=== PATIENT | female | born 1950 | race Caucasian/White ===

== ENCOUNTER 2017-07-22 03:32 | Observation (INO) | payer OTHER ==
[2017-07-22] MEDS ORDERED: IPRATROPIUM/ALBUTEROL 3 ML DEYVIAL IH ONE ×2 (03:38→06:38)
--- NOTE | 2017-07-22 03:41 | EDPHY ---
H & P Time Seen by Provider: 07/22/17 03:37 HPI/ROS: CC: Shortness of breath HPI: This 67-year-old female with past medical history of coronary artery disease status post stents x 3, hypertension, rheumatoid arthritis, and long- term tobacco use, presents to emergency [facility] complaining of increasing shortness of breath since 8 p.m. last evening. She states she has had a cough for couple of days and when she is able to cough something up it is thick and yellow. She denies fever, chills, nausea, vomiting, diaphoresis, chest pain, leg pain or swelling. No long trips or travel recently. 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 She did get a flu vaccination this year. She continues to smoke currently 3-4 cigarettes a day but has smoked more than a pack a day in the past. She started smoking at age 10. She denies history of asthma, emphysema, or COPD. She does not use home oxygen. She has not seen her primary care provider for greater than 3 years. REVIEW OF SYSTEMS: Constitutional: No fever, no chills. Eyes: No discharge. ENT: No sore throat. Left ear pain. Respiratory: See HPI. Cardiac: No chest pain, no palpitations. Gastrointestinal: No abdominal pain, no vomiting. Genitourinary: No hematuria. Musculoskeletal: No back pain. Skin: No rashes. Neurological: Mild headache. Source: Patient - Medical/Surgical History PMH: PMH: Coronary artery disease/OK with stents x 3, hypertension, rheumatoid arthritis, long-term tobacco use PSH: Coronary artery stenting x 3, cholecystectomy, knee arthroscopy, carpal tunnel surgery, GERD, shingles FH: Mother from a heart attack at age 58; father from prostate cancer at approximately age 89 Allergies to penicillin, sulfa, Humira, Enbrel, Arava Meds: Reviewed. Includes Plavix, NTG, Lipitor, losartan, Vicodin, Nexium, Voltaren, hydralazine, gabapentin, methotrexate. PCP: Sharri Mckinley Hx Asthma: No Hx Chronic Respiratory Disease: No Hx Diabetes: No Hx Cardiac Disease: Yes Hx Renal Disease: No Hx Splenectomy or Spleen Trauma: No Other PMH: Stents x 2 heart . Last in 2009. Cholecystectomy. caarpal tunnel surgery - Family History Significant Family History: Heart disease, Cancer - Social History Smoking Status: Current every day smoker Alcohol Use: Other (Patient denies current alcohol use. A review of previous records states 1-2 beers/day) Drug Use: None - Physical Exam Exam: General Appearance: Alert, mod distress. Conversational dyspnea. Sits on edge of bed instead of reclining. Appears older than stated age. Eyes: Pupils equal and round no pallor or injection. ENT, Mouth: Mucous membranes are moist. Respiratory: Tight, diminished air movement with bilateral coarse rhonchi and expiratory wheeze. Cardiovascular: Regular rate and rhythm. Borderline tachycardia. Gastrointestinal: Abdomen is soft and nontender, no masses, bowel sounds normal. Neurological: Awake and alert, sensory and motor exams grossly normal. Skin: Warm and dry, no rashes. Musculoskeletal: Neck is supple nontender. No JVD. Extremities are symmetrical, full range of motion. No calf tenderness or swelling. Psychiatric: Patient is oriented X 3, there is no agitation. DIFFERENTIAL DIAGNOSIS: After history and physical exam differential diagnosis was considered for but not limited to: Acute exacerbation of COPD, community- acquired pneumonia, influenza, congestive heart failure, cardiac ischemia, pulmonary embolism, Constitutional: Initial Vital Signs O2 Sat (%) 93 07/22/17 03:38 O2 Delivery Mode Nasal Cannula O2 (L/minute) 2 Allergies/Adverse Reactions: adalimumab [From Humira] Allergy (Verified 07/22/17 03:55) etanercept [From Enbrel] Allergy (Verified 07/22/17 03:55) leflunomide [From Arava] Allergy (Verified 07/22/17 03:55) Penicillins Allergy (Verified 07/22/17 03:55) Sulfa (Sulfonamide Antibiotics) Allergy (Verified 07/22/17 03:55) Home Medications: Medication Instructions Recorded FISH OIL 1,000 MG SOFTGEL 01/02/10 FOLIC ACID 01/02/10 HYDROCODONE-APAP 5-325 TABLET 01/02/10 Lipitor 80 mg 01/02/10 Methotrexate Lpf 01/02/10 NEXIUM 01/02/10 NITROGLYCERIN PRN 01/02/10 Plavix 01/02/10 Voltaren 01/02/10 Vitamin D3 (OTC) 09/21/15 Gabapentin 07/22/17 hydrALAZINE 07/22/17 Medical Decision Making - Diagnostics EKG Interpretation: NSR, HR 96, borderline t abn ant-lat leads; when c/w ECG 01/02/10 heart rate has increased by 34 beats per minute. Imaging Results: CXR: No infiltrate or effusion. Prominent pericardial fat pad. Mild peribronchial thickening. CTPA: No PE, no pneumonia, prominent pericardial fat pad. Mild peribronchial thickening. A few scattered nodules on right. Follow up in 6-12 months in this long time tobacco user. ED Course/Re-evaluation: The patient was seen and examined. Vital signs were notable for I a borderline tachycardia as as sats in the upper 80s on room air. She was tachypneic or with increased work of breathing. An EKG showed a normal sinus rhythm with a heart rate of 96 and no acute ischemic changes. CBC showed a normal white blood cell count with elevated MCV and MCH. Chemistry was remarkable for slightly elevated creatinine at 1.1. Troponin was normal. Lactic acid was normal. BNP was slightly elevated at 168 and a D-dimer was also slightly elevated at 0.55. Influenza negative. Patient was given a L of IV fluids, a DuoNeb, and Solu-Medrol 125 mg IV push. Chest x-ray showed no definite infiltrate. She has a very prominent pericardial fat pad. Due to the elevated D-dimer, the tachycardia and hypoxemia a CT pulmonary angiogram was performed. The radiologist verbal report confirmed no pulmonary embolism, old rib fractures , no pneumonia, minimal peribronchial thickening. She also had some scattered nodules on the right which will need follow-up in 6-12 months. The patient is feeling much better and would like to go home. Her lung sounds have improved after the DuoNeb. She was given a dose of oral doxycycline 100 mg, 2 puffs on an albuterol inhaler, and her oxygen was removed to trial her on room air. She immediately dropped down to 83%. She agrees to admission. Discussed with and accepted by Dr. Sharri Silva. - Data Points Laboratory Results: Laboratory Results 07/22/17 04:00 07/22/17 04:00 07/22/17 07/22/17 07/22/17 04:06 04:05 04:00 WBC RBC Hgb POC Hgb 13.9 gm/dL gm/dL (12.6-16.3) Hct POC Hct 41 % % (38-47) MCV MCH MCHC RDW Plt Count MPV Neut % (Auto) Lymph % (Auto) Nicholas % (Auto) Eos % (Auto) Baso % (Auto) Nucleat RBC Rel Count Absolute Neuts (auto) Absolute Lymphs (auto) Absolute Monos (auto) Absolute Eos (auto) Absolute Basos (auto) Absolute Nucleated RBC Immature Gran % Immature Gran # D-Dimer VBG Lactic Acid POC Sodium 139 mEq/L mEq/L (135-145) Sodium POC Potassium 4.3 mEq/L mEq/L (3.3-5.0) Potassium POC Chloride 101 mEq/L mEq/L (97-110) Chloride Carbon Dioxide Anion Gap POC BUN 23 mg/dL mg/dL (7-23) BUN Creatinine POC Creatinine 1.2 mg/dL H mg/dL (0.6-1.0) Estimated GFR Glucose POC Glucose 107 mg/dL H mg/dL (70-100) Calcium Total Bilirubin Conjugated Bilirubin Unconjugated Bilirubin AST ALT Alkaline Phosphatase Troponin I < 0.012 ng/mL ng/mL (0.000-0.034) NT-Pro-B Natriuret Pep 168 pg/mL H pg/mL (0-125) Total Protein Albumin Influenza A,B Rapid NEGATIVE FOR FLU (NEGATIVE) 07/22/17 07/22/17 07/22/17 04:00 04:00 04:00 WBC 4.80 10^3/uL 10^3/uL (3.80-9.50) RBC 3.90 10^6/uL L 10^6/uL (4.18-5.33) Hgb 13.9 g/dL g/dL (12.6-16.3) POC Hgb Hct 40.4 % % (38.0-47.0) POC Hct MCV 103.6 fL H fL (81.5-99.8) MCH 35.6 pg H pg (27.9-34.1) MCHC 34.4 g/dL g/dL (32.4-36.7) RDW 13.6 % % (11.5-15.2) Plt Count 203 10^3/uL 10^3/uL (150-400) MPV 9.1 fL fL (8.7-11.7) Neut % (Auto) 73.5 % % (39.3-74.2) Lymph % (Auto) 11.7 % L % (15.0-45.0) Nicholas % (Auto) 11.9 % % (4.5-13.0) Eos % (Auto) 2.3 % % (0.6-7.6) Baso % (Auto) 0.4 % % (0.3-1.7) Nucleat RBC Rel Count 0.0 % % (0.0-0.2) Absolute Neuts (auto) 3.53 10^3/uL 10^3/uL (1.70-6.50) Absolute Lymphs (auto) 0.56 10^3/uL L 10^3/uL (1.00-3.00) Absolute Monos (auto) 0.57 10^3/uL 10^3/uL (0.30-0.80) Absolute Eos (auto) 0.11 10^3/uL 10^3/uL (0.03-0.40) Absolute Basos (auto) 0.02 10^3/uL 10^3/uL (0.02-0.10) Absolute Nucleated RBC 0.00 10^3/uL 10^3/uL (0-0.01) Immature Gran % 0.2 % % (0.0-1.1) Immature Gran # 0.01 10^3/uL 10^3/uL (0.00-0.10) D-Dimer 0.55 ug/mLFEU H ug/mLFEU (0.00-0.50) VBG Lactic Acid POC Sodium Sodium 140 mEq/L mEq/L (135-145) POC Potassium Potassium 4.6 mEq/L mEq/L (3.5-5.2) POC Chloride Chloride 104 mEq/L mEq/L (97-110) Carbon Dioxide 25 mEq/l mEq/l (22-31) Anion Gap 11 mEq/L mEq/L (8-16) POC BUN BUN 23 mg/dL mg/dL (7-23) Creatinine 1.1 mg/dL H mg/dL (0.6-1.0) POC Creatinine Estimated GFR 50 Glucose 103 mg/dL H mg/dL (70-100) POC Glucose Calcium 9.1 mg/dL mg/dL (8.5-10.4) Total Bilirubin 0.6 mg/dL mg/dL (0.1-1.4) Conjugated Bilirubin 0.4 mg/dL mg/dL (0.0-0.5) Unconjugated Bilirubin 0.2 mg/dL mg/dL (0.0-1.1) AST 30 IU/L IU/L (14-46) ALT 40 IU/L IU/L (9-52) Alkaline Phosphatase 70 IU/L IU/L (38-126) Troponin I NT-Pro-B Natriuret Pep Total Protein 7.2 g/dL g/dL (6.3-8.2) Albumin 4.0 g/dL g/dL (3.5-5.0) Influenza A,B Rapid 07/22/17 04:00 WBC RBC Hgb POC Hgb Hct POC Hct MCV MCH MCHC RDW Plt Count MPV Neut % (Auto) Lymph % (Auto) Nicholas % (Auto) Eos % (Auto) Baso % (Auto) Nucleat RBC Rel Count Absolute Neuts (auto) Absolute Lymphs (auto) Absolute Monos (auto) Absolute Eos (auto) Absolute Basos (auto) Absolute Nucleated RBC Immature Gran % Immature Gran # D-Dimer VBG Lactic Acid 1.0 mmol/L mmol/L (0.7-2.1) POC Sodium Sodium POC Potassium Potassium POC Chloride Chloride Carbon Dioxide Anion Gap POC BUN BUN Creatinine POC Creatinine Estimated GFR Glucose POC Glucose Calcium Total Bilirubin Conjugated Bilirubin Unconjugated Bilirubin AST ALT Alkaline Phosphatase Troponin I NT-Pro-B Natriuret Pep Total Protein Albumin Influenza A,B Rapid Medications Given: Discontinued Medications Albuterol/Ipratropium (Duoneb) 3 ml IH EDNOW ONE Stop: 07/22/17 03:39 Last Admin: 07/22/17 03:54 Dose: 3 ml Sodium Chloride (Ns) 1,000 mls @ 0 mls/hr IV ONCE ONE; Wide Open PRN Reason: Protocol Stop: 07/22/17 04:21 Last Admin: 07/22/17 04:25 Dose: 1,000 mls Methylprednisolone Sodium Succinate (Solu-Medrol) 125 mg IVP EDNOW ONE Stop: 07/22/17 04:21 Last Admin: 07/22/17 04:24 Dose: 125 mg Point of Care Test Results: 07/22/17 04:06 POC Sodium 139 POC Potassium 4.3 POC Chloride 101 POC BUN 23 POC Creatinine 1.2 H POC Glucose 107 H Departure - Departure Disposition: [facility] Inpatient Acute Clinical Impression: Hypoxemia Acute bronchitis Qualifiers: Bronchitis organism: unspecified organism Qualified Code(s): J20.9 - Acute bronchitis, unspecified Condition: Fair Instructions: Acute Bronchitis (ED), Doxycycline (By mouth), Albuterol (By breathing), Pulmonary Function Tests (DC) Additional Instructions: Please stop smoking. Take medications as directed. Call today to arrange follow up with your primary care provider, Dr. Benjamin Roger. You will need further evaluation to determine if you have COPD and if you could benefit from inhalers etc. You may need Pulmonary Function Testing (PFTs). You will also need a repeat CT scan of your lungs in 6-12 months. Return to the ER if symptoms worsen.
--- NOTE | 2017-07-22 03:52 | CPEKG ---
Heart Rate: 96 RR Interval: 625 P-R Interval: 128 QRSD Interval: 66 QT Interval: 344 QTC Interval: 435 P Sulligent: 82 QRS Sulligent: 73 T Wave Sulligent: 74 EKG Severity - BORDERLINE ECG - EKG Impression: SINUS RHYTHM EKG Impression: BORDERLINE T ABNORMALITIES, ANT-LAT LEADS Electronically Signed By: Colette Luu 22-Jul-2017 05:30:59
[2017-07-22 04:12] LABS: PLATELET COUNT 203 10^3/uL (150-400)
[2017-07-22] MEDS ORDERED: NS 1,000 ML IV ONE (04:20)
[2017-07-22] MEDS ORDERED: methylPREDNISolone SOD SUCC 125 MG/2 ML VIAL IVP ONE (04:20)
[2017-07-22] MEDS ORDERED: IOPAMIDOL (ISOVUE 370) 100 ML BTL IV ONE (05:05)
[2017-07-22] MEDS ORDERED: ALBUTEROL INH PREPACK MDI TAKEHOME ONE (06:01)
[2017-07-22] MEDS: DOXYCYCLINE 100 MG PREPACK#2 BTL TAKEHOME ONE ×2 (06:07→06:23)
[2017-07-22] MEDS ORDERED: IPRATROPIUM/ALBUTEROL 3 ML DEYVIAL ONE (06:36)
[2017-07-22] MEDS ORDERED: ONDANSETRON 4 MG/2 ML VIAL IVP PRN (10:23)
[2017-07-22] MEDS ORDERED: ONDANSETRON DISINTEGRATING 4 MG TAB PO PRN (10:23)
[2017-07-22] MEDS ORDERED: ALBUTEROL 60 PUFFS/8 GM MDI IH PRN (10:23)
[2017-07-22] MEDS ORDERED: ACETAMINOPHEN 325 MG TAB PO PRN (10:23)
[2017-07-22] MEDS: LOSARTAN POTASSIUM 50 MG TAB PO SCH (11:11)
[2017-07-22] MEDS: predniSONE 20 MG TAB PO SCH (11:12)
[2017-07-22] MEDS: PANTOPRAZOLE SODIUM 40 MG TAB PO SCH (11:12)
[2017-07-22] MEDS: CLOPIDOGREL BISULFATE 75 MG TAB PO SCH (11:12)
[2017-07-22] MEDS: NICOTINE 14 MG/24 HR PATCH TD SCH (11:13)
[2017-07-22] MEDS ORDERED: NS 500 ML IV SCH (12:00)
[2017-07-22] MEDS: IPRATROPIUM/ALBUTEROL 3 ML DEYVIAL IH SCH ×3 (12:14→21:35)
[2017-07-22] MEDS: HYDROCODONE/APAP 5/325 TAB PO PRN ×2 (12:20→21:56)
[2017-07-22] MEDS: DOXYCYCLINE HYCLATE 100 MG CAP/TAB PO SCH ×2 (12:20→21:56)
--- NOTE | 2017-07-22 12:33 | GHP ---
[f rep st] HISTORY AND PHYSICAL DATE OF ADMISSION: 07/22/2017 CHIEF COMPLAINT: Worsening shortness of breath. HISTORY OF PRESENT ILLNESS: The patient is a 67-year-old female with a past medical history of long-term tobacco use, coronary artery disease status post stents x3, hypertension, and rheumatoid arthritis, who presented to the emergency department complaining of increased shortness of breath. She has been smoking since age 10. She currently smokes 3-4 cigarettes a day. She said her baseline is that she is not usually short of breath. She woke up during the night, could not get comfortable. Her shortness of breath worsened with any activity. She denies any chest pain. She also describes having a cough for the past 2-3 days as well as sputum production. She was checked for influenza, which was negative. In addition, a D-dimer was checked and this was noted to be elevated. A CTA was performed, which did not note that she had a pulmonary emboli. She denies any fever, chills, nausea, vomiting. No leg swelling. Her main complaint is that she is short of breath. PAST MEDICAL HISTORY: 1. Gallstone pancreatitis. 2. Coronary artery disease, OR with stents x3. 3. Hypertension. 4. Rheumatoid arthritis. 5. GERD. PAST SURGICAL HISTORY: 1. Stenting x3. 2. Cholecystectomy. 3. Knee arthroscopy. 4. Carpal tunnel surgery. SOCIAL HISTORY: She has been with her partner, who is at the bedside, for 37 years. She owns a catering truck. She has 1 daughter. She smokes 3-4 cigarettes a day. She has been smoking since age 10. FAMILY HISTORY: Her mom is and of complications of heart failure at age 58. Her father at age 87 of prostate cancer. ALLERGIES: Penicillin, sulfa, Humira, Enbrel, and Arava. HOME MEDICATIONS: Protonix 40 mg daily, meloxicam 15 mg p.o. at bedtime, fish oil 2000 mg daily, Cozaar 100 mg daily, Plaquenil 300 mg p.o. at bedtime, folic acid 1 mg twice daily, methotrexate 25 mg p.o. on Mondays, [place] 1 tab q.4-6 hours p.r.n., Lipitor 80 mg p.o. at bedtime, Nitrostat 0.5 mg sublingual p.r.n. , vitamin B12 at 1000 mcg daily, Plavix 75 mg daily, vitamin D3 at 2000 units daily. REVIEW OF SYSTEMS: A 10-point review of system was performed, and was negative other than pertinent positives in HPI and Past Medical History. PHYSICAL EXAM: GENERAL: The patient is a 67-year-old female who does not appear to be in acute distress. VITAL SIGNS: Blood pressure is 119/67, heart rate is 89, respiratory rate is 18, O2 sats on 3 L, temperature is 36.7 Celsius. EYES: Pupils are equal and reactive. EOMs are intact. She is wearing glasses. ENT: Normal ears. Hearing is intact. NECK: Trachea is midline. CARDIOVASCULAR: She is in a regular rate and rhythm. No murmurs noted. CHEST/LUNGS: She has a few bilateral coarse rhonchi, but otherwise clear to auscultation. She has poor expiratory phases when she breathes. ABDOMEN: Soft, nontender. SKIN: No rashes, ulcer. MUSCULOSKELETAL: She has normal gait. Equal in upper and lower extremity. PSYCHIATRIC: She is alert and oriented. Normal mood, affect. Normal judgment, insight and normal memory. DATA: Reviewed. Laboratory data shows a white blood cell count of 4.8, hemoglobin of 13, hematocrit of 40, MCV of 103.6, platelet count of 203. Coags : D-dimer is elevated at 0.55, venous lactic acid was 1. Chemistry: Sodium is 139, potassium 4.3, chloride of 101, BUN of 23, creatinine of 1.2, troponin is less than 0.012, BNP is 168, glucose is 107. Rapid influenza A and B were both noted to be negative. RADIOLOGIC DATA: 1. A chest x-ray shows mild airway disease, bronchitis. 2. A CTA was performed, which showed no evidence of pulmonary embolic disease. She has query chronic bronchitis. She has small pulmonary nodules. Recommendations: Repeat CT in 12 months. 3. EKG was performed, which I evaluated and interpreted myself, which showed a sinus rhythm with some borderline T abnormalities in the anterior lateral leads. ASSESSMENT/PLAN: 1. Chronic obstructive pulmonary disease exacerbation with associated bronchitis. She had good results with receiving IV steroids. She does not appear to be in any significant distress. Will treat her with prednisone 40 mg daily; this can be continued for 5 days. In addition, will start treatment with bronchodilators. Will order a spirometry pre and post bronchodilator to get a baseline on her. Also, will place her on doxycycline; this was already started at the previous facility. Suspect she likely has a brewing viral infection since this came on so acutely. A PCR respiratory panel has been ordered. 2. Small pulmonary nodules. Recommendation is yearly surveillance due to history of smoking. 3. Gastroesophageal reflux disease. Continue proton pump inhibitor. 4. Hyperlipidemia, statin. 5. Rheumatoid arthritis. Resumed her home medications. 6. Coronary disease status post stenting. Resumed Plavix. 7. Nicotine dependence. Spoke with the importance of quitting smoking and the impact on her heart and lungs. Nicotine patch has been ordered. 8. Renal insufficiency. Creatinine is 1.2. I am not clear of what her baseline is. Will recheck in the morning. 9. Deep venous thrombosis prophylaxis, moderate risk. Can initiate low- molecular weight heparin if she ends up staying. 10. Length of stay: Suspect she will only require a midnight stay, which will make her observation status. 11. Code status: Full. /[id number]/MODL MTDD
--- NOTE | 2017-07-22 13:14 | ASMTCMCOM ---
CM Note CM Note Notes: Chart reviewed for discharge planning purposes. She is 67 year old female with COPD, CAD and HTN admitted with complaints of SOB. Influeza B positive. Normally lives [place] in [place] with her partner. CM to follow if needs arise. Date Signed: 07/22/2017 01:14 PM Electronically Signed By:Tawny Card RN
[2017-07-22] MEDS: OSELTAMIVIR PHOSPHATE 75 MG CAP PO SCH ×2 (13:42→17:42)
[2017-07-22] MEDS ORDERED: HYDROXYCHLOROQUINE SULFATE 200 MG TAB PO SCH (18:00)
[2017-07-22] MEDS ORDERED: CYANO/VITAMIN B12 1000 MCG TAB PO SCH (21:00)
[2017-07-22] MEDS ORDERED: ATORVASTATIN CALCIUM 40 MG TAB PO SCH (21:00)
[2017-07-22] MEDS: OMEGA-3 FATTY ACIDS 1,000 MG CAP PO SCH (21:54)
[2017-07-22] MEDS: FOLIC ACID 1 MG TAB PO SCH (21:56)
[2017-07-23] MEDS: IPRATROPIUM/ALBUTEROL 3 ML DEYVIAL IH SCH ×2 (06:18→12:06)
[2017-07-23] MEDS: predniSONE 20 MG TAB PO SCH (08:56)
[2017-07-23] MEDS: DOXYCYCLINE HYCLATE 100 MG CAP/TAB PO SCH (08:57)
[2017-07-23] MEDS: FOLIC ACID 1 MG TAB PO SCH (08:57)
[2017-07-23] MEDS: OSELTAMIVIR PHOSPHATE 75 MG CAP PO SCH (08:58)
[2017-07-23] MEDS: PANTOPRAZOLE SODIUM 40 MG TAB PO SCH (08:59)
[2017-07-23] MEDS: CLOPIDOGREL BISULFATE 75 MG TAB PO SCH (08:59)
[2017-07-23] MEDS: OMEGA-3 FATTY ACIDS 1,000 MG CAP PO SCH (09:00)
[2017-07-23] MEDS ORDERED: ENOXAPARIN 40 MG/0.4 ML SYR SC SCH (09:00)
[2017-07-23] MEDS ORDERED: CHOLECALCIFEROL VIT D3 2,000 UNITS TAB/CAP PO SCH (09:00)
[2017-07-23] MEDS: LOSARTAN POTASSIUM 50 MG TAB PO SCH (09:01)
[2017-07-23] MEDS: NICOTINE 14 MG/24 HR PATCH TD SCH (09:04)
[2017-07-23] MEDS: HYDROCODONE/APAP 5/325 TAB PO PRN (09:09)
[2017-07-23 11:37] VITALS: BP 111/65; TEMP 98.7
[2017-07-23 12:39] VITALS: RESP 18
[2017-07-23 12:41] VITALS: PULSE 94; O2SAT 92
--- NOTE | 2017-07-23 13:10 | PDHOMEO2F ---
Home Oxygen Face to Face Home Orders: I certify that a physician or a nurse practitioner or physician's insurance sales assistant has had a [id number] encounter with this patient on the date of this order due to the diagnosis listed, which relates to the primary reason the patient requires home oxygen. Alternative treatments have been tried, or considered, and deemed ineffective. It is anticipated that supplemental oxygen will result in improvement with treatment. Home oxygen qualifying diagnosis: copd SpO2 on room air (%): 86 Frequency of home oxygen needed: continuous Home oxygen liters per minute: 2 Home oxygen delivery device: nasal cannula Concentrator: No E-tanks for mobility and back up: Yes If ordering portable O2, is the patient mobile in the home?: Yes I certify that, based on these findings, the home oxygen is medically necessary for this patient for the following length of time. Length of time home oxygen needed: 1 month
--- NOTE | 2017-07-23 13:15 | HOSPPROG ---
Hospitalist Progress Note Assessment/Plan: 67 yo F w cad a/w dyspnea, AHRF and influenza home today see dc summary Subjective: feels well. anxious for dc. 86% on RA Objective: Vital Signs Temp Pulse Resp BP Pulse Ox 37.1 C 94 18 111/65 92 07/23/17 11:36 07/23/17 12:38 07/23/17 12:38 07/23/17 11:36 07/23/17 12:38 Microbiology 07/22/17 11:15 Respiratory Panel (PCR) - Final Nasal, Sinus - Swab Influenza Virus Type B Laboratory Results 07/23/17 04:18 07/22/17 07/23/17 07/24/17 05:59 05:59 06:59 Intake Total 2300 Balance 2300 - Physical Exam Constitutional: no apparent distress, appears nourished Eyes: PERRL, anicteric sclera Ears, Nose, Mouth, Throat: moist mucous membranes, hearing normal Cardiovascular: regular rate and rhythym, no murmur, rub, or gallop Respiratory: other (prolonged expiratory phase) Gastrointestinal: normoactive bowel sounds, soft, non-tender abdomen Genitourinary: No barclay in urethra Skin: warm, normal color Musculoskeletal: full muscle strength Neurologic: AAOx3 ICD10 Worksheet Patient Problems: Problems Problem Status Onset Acute bronchitis Acute Hypoxemia Acute
--- NOTE | 2017-07-23 13:36 | GDS ---
[f rep st] DISCHARGE SUMMARY DISCHARGE DIAGNOSES: 1. Acute hypoxemic respiratory failure. 2. Influenza. 3. Chronic obstructive pulmonary disease. 4. History of coronary disease. 5. Pulmonary nodules. 6. Hypertension. HOSPITAL COURSE: Please see Admission History and Physical by Natty Pham. Patient presented wi th increased work of breathing, rather sudden in onset. She was positive for influenza. She was ini tially treated for a COPD flare with prednisone and antibiotics. Antibiotics were discontinued with return of the influenza. She had a negative troponin and a nonischemic EKG. She had an elevated D-dimer, so pulmonary embolis m was evaluated with a CT which was negative. She does have some pulmonary nodules that require some followup. She is discharged home with Tamiflu, home oxygen for what is likely a limited period of t caitlyn, as well as prescriptions for Combivent and albuterol rescue inhaler. She was strongly advised t o discontinue cigarettes altogether. She is only smoking 2 or 3 now per day, and she is also advised to not use cigarette near open flame. /[id number]/MODL
--- NOTE | 2017-07-23 15:38 | ASMTLACE ---
KIMBERLYE Length of stay for Answers: 1 day current admission Acuity / Level of Answers: No Care: Did the patient have an inpatient admission? Comorbidities - select Answers: Chronic pulmonary disease all that apply Coronary Artery Disease # of Emergency department Answers: 1-2 visits in the last 6 months Score: 6 Date Signed: 07/23/2017 03:37 PM Electronically Signed By:Rere Arreola
[2017-07-25] MEDS ORDERED: METHOTREXATE 2.5 MG TAB PO SCH (10:00)
== END 2017-07-23 16:06 | disposition home or self-care (01) ==
LOC: CED 03:32 → CEDHOLD 06:29 → F3N 09:24
PROVIDERS: ADMIT Family Medicine; ATTEND Internal Medicine
DX: J96.01 Acute respiratory failure with hypoxia (principal); J44.1 Chronic obstructive pulmonary disease with (acute) exacerbation; J10.1 Influenza due to other identified influenza virus with other respiratory manifestations; I25.10 Atherosclerotic heart disease of native coronary artery without angina pectoris; R91.1 Solitary pulmonary nodule; E86.9 Volume depletion, unspecified; N17.9 Acute kidney failure, unspecified; I10 Essential (primary) hypertension; F17.210 Nicotine dependence, cigarettes, uncomplicated; M06.9 Rheumatoid arthritis, unspecified; I25.2 Old myocardial infarction; K21.9 Gastro-esophageal reflux disease without esophagitis; Z82.49 Family history of ischemic heart disease and other diseases of the circulatory system; Z95.5 Presence of coronary angioplasty implant and graft; Z88.0 Allergy status to penicillin; Z88.2 Allergy status to sulfonamides
CPT/HCPCS: 71046; 71275; 93005; 96361; 96374; 99285; G0378; J1650; J2930; J7512; Q9967; 80048-PO; 80076-PO; 82947-QW; 83605-PO; 83880-PO; 84484-PO; 85025-PO; 85378-PO; 87400-PO

== ENCOUNTER → 2018-08-31 | Outpatient (CLI) | payer OTHER | LOC: EMCIMAGING 13:12 | PROVIDERS: ATTEND Physician Assistant Medical | DX: R91.8 Other nonspecific abnormal finding of lung field (principal); N20.0 Calculus of kidney; I25.10 Atherosclerotic heart disease of native coronary artery without angina pectoris; I70.0 Atherosclerosis of aorta; M51.34 Other intervertebral disc degeneration, thoracic region; Z90.49 Acquired absence of other specified parts of digestive tract | CPT/HCPCS: 71250-PN ==